=== PATIENT | female | born 1965 | race Caucasian/White ===

== ENCOUNTER 2017-11-17 08:44 | Emergency (ER) | payer OTHER, MEDICAID ==
[~2017-11-17] VITALS: Ht 162.6 cm; Wt 113.4 kg
[2017-11-17] MEDS ORDERED: KETOROLAC TROMETH 60MG/2ML VIAL IM ONE (09:00)
[2017-11-17 09:01] VITALS: BP 118/70
== END 2017-11-17 10:28 | disposition home or self-care (01) ==
LOC: ER 08:44
DX: S16.1XXA Strain of muscle, fascia and tendon at neck level, initial encounter (principal); S76.012A Strain of muscle, fascia and tendon of left hip, initial encounter; J44.9 Chronic obstructive pulmonary disease, unspecified; E11.9 Type 2 diabetes mellitus without complications; I10 Essential (primary) hypertension; V43.52XA Car driver injured in collision with other type car in traffic accident, initial encounter; Y93.89 Activity, other specified; Y99.8 Other external cause status; Y92.488 Other paved roadways as the place of occurrence of the external cause
CPT/HCPCS: 72040; 73502; 96372; 99284; J1885